=== PATIENT | male | born 1965 | race American Indian/Alaskan Native ===

== ENCOUNTER 2017-05-12 16:28 | Emergency (ER) | payer OTHER ==
[2017-05-12] MEDS ORDERED: HYDROmorphone 1 MG/ML Syringe IM ONE (16:40)
[2017-05-12] MEDS ORDERED: Lidocaine 1% 20 ML MDV INJECT ONE (16:41)
[2017-05-12] MEDS ORDERED: Bupivacaine 0.5% 10 ML SDV INJECT ONE (16:41)
[2017-05-12] MEDS ORDERED: Ondansetron 4 MG Tab.DIS PO ONE (16:41)
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
[2017-05-12 17:49] VITALS: BP 144/98
--- NOTE | 2017-05-14 18:14 | CR ---
EXAM DATE: 05/12/17 PATIENT'S AGE: 51 Patient: CHELO NAVARRO Facility: [place], [place] Site . Site : 1965 Study: XRay Extremity Left [id number]/13/2018 5:06:30 PM Ordering Physician: Doctor Yu Final Report: HISTORY: Foreign body. TECHNIQUE: Left hand 2 views. COMPARISON: None. FINDINGS: Metallic nail in the radial aspect of the hand dorsal to the index finger MTP joint. Nail is in close proximity to the index finger proximal phalanx base. No displaced osseous fragment. Mild degenerative changes of UIP joints. No erosions. IMPRESSION: Metallic nail dorsal to the 1st MTP joint. Nail is in close proximity to the index finger proximal phalanx base. No displaced osseous fragment. Dictated by Cassius Yo MD @ May 12 2017 5:39PM (Electronic Signature) Report Signed by Proxy. DILSHAD
--- NOTE | 2017-05-14 18:18 | CR ---
EXAM DATE: 05/12/17 PATIENT'S AGE: 51 Patient: CHELO NAVARRO Facility: [place], [place] Site . Site : 1965 Study: XRay Extremity Left [id number] hand-05/12/2017 5:27:10 PM Ordering Physician: Mahad Velasquez Final Report: HISTORY: Foreign body removal. TECHNIQUE: Left hand 3 views. COMPARISON: None. FINDINGS: Metallic nail has been removed. Bones are intact. Mild degenerative changes. No residual metallic foreign body. IMPRESSION: Post foreign body removal. No residual metallic foreign body. No acute bone abnormality. Dictated by Cassius Yo MD @ May 12 2017 5:45PM (Electronic Signature) Report Signed by Proxy. DILSHAD
== END 2017-05-12 17:49 | disposition home or self-care (01) ==
LOC: MW.ED 16:28
DX: S60.551A Superficial foreign body of right hand, initial encounter (principal); F17.210 Nicotine dependence, cigarettes, uncomplicated; W29.4XXA Contact with nail gun, initial encounter
CPT/HCPCS: 73120; 96372; 99283; A9270; J1170

== ENCOUNTER 2019-04-13 05:32 | Emergency (ER) | payer OTHER ==
[2019-04-13] MEDS ORDERED: Tetracaine HCl/PF 0.5% 4 ML Bottle EYELF ONE (05:33)
[2019-04-13] MEDS ORDERED: Tetracaine HCl/PF 0.5% 4 ML Bottle ONE (05:35)
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
[2019-04-13] MEDS ORDERED: Erythromycin Base 0.5% Ophth Oint 1 GM Tube EYELF ONE (06:32)
[2019-04-13 06:39] VITALS: BP 129/78; PULSE 77
== END 2019-04-13 06:45 | disposition home or self-care (01) ==
LOC: MW.ED 05:32
DX: S05.02XA Injury of conjunctiva and corneal abrasion without foreign body, left eye, initial encounter (principal); E66.9 Obesity, unspecified; Z68.31 Body mass index [BMI] 31.0-31.9, adult; X58.XXXA Exposure to other specified factors, initial encounter
CPT/HCPCS: 99283; A9270

== ENCOUNTER 2019-05-10 20:32 | Emergency (ER) | payer MEDICAID, OTHER ==
[2019-05-10] MEDS ORDERED: Sodium Chloride 0.9% 1,000 ML IV ONE (20:41)
[2019-05-10] MEDS ORDERED: Sodium Chloride 0.9% 10 ML Syringe FLUSH PRN (20:41)
[2019-05-10] MEDS ORDERED: Aspirin 81 MG Tab.Chew PO ONE (20:41)
[2019-05-10] MEDS ORDERED: Alum Hydrox/Mag Hydrox/Simeth 15 ML, Metoclopramide 5 MG, Lidocaine 2% 5 ML PO ONE ×3 (20:41)
[2019-05-10] MEDS ORDERED: Sodium Chloride 0.9% 2.5 ML Syringe FLUSH PRN (20:41)
[2019-05-10] MEDS ORDERED: Aspirin 81 MG Tab.Chew ONE (20:57)
[2019-05-10 21:07] LABS: BLOOD UREA NITROGEN,BUN 23 mg/dL (7.0-18.0); CARBON DIOXIDE,CO2 26.5 mmol/L (21.0-32.0); CHLORIDE,CL 103 mmol/L (98-107); GLUCOSE RANDOM 127 mg/dL (74-106); POTASSIUM,K 3.8 mmol/L (3.5-5.1); SODIUM,NA 140 mmol/L (136-148)
--- NOTE | 2019-05-10 21:14 | CR ---
HISTORY: Chest pain. COMPARISON: 09/09/2013. FINDINGS: Single portable view of the of the chest. The lungs are clear. Costophrenic angles sharp. Heart size and pulmonary vascularity within normal limits. Bony thorax intact. Dictated by Crystal August MD @ May 10 2019 9:11PM Signed by Dr. Crystal August @ May 10 2019 9:11PM
[2019-05-10 22:29] VITALS: BP 125/70; PULSE 86
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
== END 2019-05-10 22:57 ==
LOC: MW.ED 20:32
DX: M94.0 Chondrocostal junction syndrome [Tietze] (principal)
CPT/HCPCS: 36415; 71045; 80053; 84484; 85025; 85610; 93005; 96360; 99285; A9270; J7030; 99283

== ENCOUNTER 2022-11-27 02:26 | Emergency (ER) | payer OTHER ==
[2022-11-27] MEDS ORDERED: Aluminum Hydroxide/Magnesium Hydroxide/Simethicone XS Susp 30 ML Cup PO ONE (02:41)
[2022-11-27 02:44] VITALS: BP 151/97; PULSE 81
== END 2022-11-27 02:46 | disposition home or self-care (01) ==
LOC: MW.ED 02:26
DX: Z02.89 Encounter for other administrative examinations (principal); K29.70 Gastritis, unspecified, without bleeding; E66.9 Obesity, unspecified; Z68.29 Body mass index [BMI] 29.0-29.9, adult; K21.9 Gastro-esophageal reflux disease without esophagitis
CPT/HCPCS: 99283

== ENCOUNTER 2022-11-28 21:46 | Emergency (ER) | payer OTHER ==
[2022-11-28] MEDS ORDERED: Sodium Chloride 0.9% 2.5 ML Syringe FLUSH PRN (21:49)
[2022-11-28] MEDS ORDERED: Sodium Chloride 0.9% 10 ML Syringe FLUSH PRN (21:49)
[2022-11-28] MEDS ORDERED: Ondansetron 4 MG Tab.DIS PO ONE (22:52)
[2022-11-28] MEDS ORDERED: Aluminum Hydroxide/Magnesium Hydroxide/Simethicone XS Susp 30 ML Cup PO ONE (22:52)
[2022-11-28 23:07] LABS: BASOPHILS PERCENT AUTO 0.3 % (0.0-1.5); EOSINOPHILS ABSOLUTE AUTO 0.1 K/uL (0.0-0.7); EOSINOPHILS PERCENT AUTO 1.1 % (0.0-7.0); HEMATOCRIT 45.4 % (38.0-50.0); HEMOGLOBIN 16.3 g/dL (13.0-17.0); LYMPHOCYTES PERCENT AUTO 32.5 % (16.0-40.0); MEAN CORPUSCULAR HGB CONC 35.9 g/dL (31.0-37.0); MEAN CORPUSCULAR VOLUME 86.5 fL (80.0-98.0); MONOCYTES ABSOLUTE AUTO 0.7 K/uL (0.0-0.8); MONOCYTES PERCENT AUTO 7.8 % (0.0-15.0); NEUTROPHILS ABSOLUTE AUTO 5.4 K/uL (1.4-5.7); NEUTROPHILS PERCENT AUTO 58.3 % (48.0-80.0); NRBC ABSOLUTE 0 K/uL; PLATELET COUNT,PLT 255 K/uL (150-400); RED BLOOD CELL COUNT 5.25 M/uL (4.50-5.90); WHITE BLOOD CELL COUNT,WBC 9.19 K/uL (4.0-11.0)
[2022-11-28 23:44] LABS: A/G RATIO 0.8 (0.9-1.6); ALBUMIN 3.2 g/dL (3.4-5.0); BILIRUBIN TOTAL 0.5 mg/dL (0.2-1.0); CALCIUM 8.8 mg/dL (8.5-10.1); CARBON DIOXIDE,CO2 25.1 mmol/L (21.0-32.0); CREATININE 1.2 mg/dL (0.8-1.3); EST CRCL DRUG DOSING (CG) 75.44 mL/min; POTASSIUM,K 3.6 mmol/L (3.5-5.1); PROTEIN TOTAL,TP 7.4 g/dL (6.4-8.2)
[2022-11-29] MEDS ORDERED: Pantoprazole 80 MG in Sodium Chloride 0.9% 10 ML IVPUSH ONE (00:14)
[2022-11-29] MEDS ORDERED: HYDROmorphone 1 MG/ML Syringe IM ONE (01:01)
[2022-11-29] MEDS ORDERED: Ondansetron 4 MG Tab.DIS PO ONE (01:01)
[2022-11-29 02:06] VITALS: BP 125/84; PULSE 78
[2022-11-29] MEDS ORDERED: Pantoprazole 40 MG Tab.CR PO SCH (02:30)
== END 2022-11-29 02:30 | disposition home or self-care (01) ==
LOC: MW.ED 21:46
DX: K29.70 Gastritis, unspecified, without bleeding (principal); K44.9 Diaphragmatic hernia without obstruction or gangrene; F17.210 Nicotine dependence, cigarettes, uncomplicated; K21.9 Gastro-esophageal reflux disease without esophagitis; E66.9 Obesity, unspecified; Z68.27 Body mass index [BMI] 27.0-27.9, adult; Z79.899 Other long term (current) drug therapy
CPT/HCPCS: 36415; 71045; 71250; 74176; 80053; 83690; 83735; 84484; 85025; 85379; 96374; 99285; A9270; C9113; J3490; 93010; 99284

== ENCOUNTER 2024-06-09 10:27 | Emergency (ER) | payer MEDICAID, OTHER ==
[2024-06-09] MEDS ORDERED: Sodium Chloride 0.9% 2.5 ML Syringe FLUSH PRN (10:36)
[2024-06-09] MEDS ORDERED: Sodium Chloride 0.9% 10 ML Syringe FLUSH PRN (10:36)
[2024-06-09] MEDS: Aspirin 81 MG Tab.Chew PO ONE (10:49)
[2024-06-09 11:12] LABS: BASOPHILS ABSOLUTE AUTO 0.05 K/uL (0.00-0.20); BASOPHILS PERCENT AUTO 0.6 % (0.0-1.0); EOSINOPHILS ABSOLUTE AUTO 0.08 K/uL (0.00-0.45); EOSINOPHILS PERCENT AUTO 0.9 % (0.0-6.0); HEMATOCRIT 48.8 % (42.0-52.0); HEMOGLOBIN 17.1 g/dL (14.0-18.0); IMMATURE GRAN ABSOLUTE AUTO 0.06 K/uL (0.00-0.05); IMMATURE GRAN PERCENT AUTO 0.7 % (0.0-0.4); LYMPHOCYTES ABSOLUTE AUTO 1.81 K/uL (1.00-4.80); LYMPHOCYTES PERCENT AUTO 21.2 % (24.0-44.0); MEAN CORPUSCULAR HEMOGLOBIN 30.6 pg (28.0-32.0); MEAN CORPUSCULAR VOLUME 87.5 fL (83.0-99.0); MEAN PLATELET VOLUME 9.1 fL (9.4-12.4); MONOCYTES ABSOLUTE AUTO 1.24 K/uL (0.00-0.80); MONOCYTES PERCENT AUTO 14.5 % (0.0-8.0); NEUTROPHILS PERCENT AUTO 62.1 % (41.0-71.0); PLATELET COUNT,PLT 236 K/uL (150-400); RED BLOOD CELL COUNT 5.58 M/uL (4.52-5.90); WHITE BLOOD CELL COUNT,WBC 8.54 K/uL (3.9-11.3)
[2024-06-09] MEDS: Morphine 4 MG/ML Syringe IVPUSH ONE (11:25)
[2024-06-09] MEDS: Ondansetron 4 MG/2 ML SDV IVPUSH ONE (11:25)
[2024-06-09 11:38] LABS: INR 1.05 (0.86-1.11)
[2024-06-09 11:39] LABS: A/G RATIO 0.8 (0.9-1.6); ALBUMIN 3.7 g/dL (3.4-5.0); BILIRUBIN TOTAL 0.5 mg/dL (0.2-1.0); CALCIUM 9.5 mg/dL (8.5-10.1); CARBON DIOXIDE,CO2 25.6 mmol/L (21.0-32.0); CREATININE 1.1 mg/dL (0.8-1.3); EST CRCL DRUG DOSING (CG) 81.32 mL/min; MAGNESIUM 1.9 mg/dL (1.8-2.4); POTASSIUM,K 4.7 mmol/L (3.5-5.1); PROTEIN TOTAL,TP 8.1 g/dL (6.4-8.2); TSH ULTRASENSITIVE 1.56 uIU/mL (0.36-3.74)
[2024-06-09] MEDS: Ketorolac 30 MG/ML SDV IVPUSH ONE (15:12)
[2024-06-10 07:32] VITALS: BP 126/94; PULSE 98
== END 2024-06-09 16:20 | disposition home or self-care (01) ==
LOC: MW.ED 10:27
DX: M94.0 Chondrocostal junction syndrome [Tietze] (principal); E66.9 Obesity, unspecified; Z68.29 Body mass index [BMI] 29.0-29.9, adult; Z79.899 Other long term (current) drug therapy
CPT/HCPCS: 36415; 71045; 71045-26; 80053; 83735; 83880; 84443; 84484; 85025; 85610; 93005; 96374; 96375; 99285-25; A9270-GY; J1885; J2270; J2405